=== PATIENT | female | born 1950 | race Caucasian/White ===

== ENCOUNTER → 2021-02-23 | Outpatient (CLI) | payer MEDICARE, BC | LOC: DX 11:16 | PROVIDERS: ATTEND Family Medicine | DX: R13.10 Dysphagia, unspecified (principal); Z20.822 Contact with and (suspected) exposure to COVID-19 | CPT/HCPCS: 74230; 92526; 92611; U0002 ==

== ENCOUNTER 2021-04-21 09:46 | Inpatient (IN) | payer MEDICARE, BC ==
[~2021-04-21] VITALS: Ht 167.6 cm; Wt 117.9 kg
[2021-04-21] MEDS ORDERED: ONDANSETRON HCL INJ 2MG/ML 2ML 2 MG/ML VIAL IV STA (10:28)
[2021-04-21] MEDS ORDERED: ONDANSETRON HCL INJ 2MG/ML 2ML 2 MG/ML VIAL ONE (10:35)
[2021-04-21 10:45] LABS: BASOPHILS % 0.2 % (0.0-1.0); EOSINOPHILS # (AUTO) 0.1 (0.0-0.4); EOSINOPHILS % 1.2 % (0.0-6.0); HEMATOCRIT 38.9 % (34.2-44.1); HEMOGLOBIN 12.8 g/dL (12.0-16.0); LYMPHOCYTES # (AUTO) 1.7 (1.0-3.2); LYMPHOCYTES % 14.8 % (18.0-39.1); MEAN CORPUSCULAR HEMOGLOBIN 30.3 pg (28-32); MEAN CORPUSCULAR HGB CONC 32.9 g/dL (31-35); MONOCYTES # (AUTO) 1.3 (0.2-0.8); MONOCYTES % 11.2 % (4.4-11.3); NEUTROPHILS # (AUTO) 8.2 (2.1-6.9); NEUTROPHILS % 71.9 % (38.7-80.0); PLATELET COUNT 279 x10e3/uL (140-360); RED BLOOD COUNT 4.23 x10e6/uL (3.6-5.1); RED CELL DISTRIBUTION WIDTH 13.5 % (11.7-14.4)
[2021-04-21] MEDS ORDERED: SODIUM CHLORIDE 0.9% 1000ML 1,000 ML IV SCH (10:45)
[2021-04-21] MEDS ORDERED: ONDANSETRON HCL INJ 2MG/ML 2ML 2 MG/ML VIAL IV PRN (10:45)
[2021-04-21] MEDS ORDERED: DEXTROSE 50% SYRINGE 50 ML IV PRN (10:45)
[2021-04-21] MEDS ORDERED: SODIUM CHLORIDE 0.9% 500ML 500 ML IV ONE (10:45)
[2021-04-21 11:16] LABS: ALBUMIN 3.5 g/dL (3.5-5.0); ANION GAP 25.9 mmol/L (8-16); CALCIUM 9.8 mg/dL (8.4-10.2); CREATININE, SERUM 7.14 mg/dL (0.57-1.11); POTASSIUM 4.9 mmol/L (3.5-5.1)
[2021-04-21 11:20] LABS: MAGNESIUM 1.1 MG/DL (1.3-2.1)
[2021-04-21] MEDS: INSULIN LISPRO 100 UNIT/1 ML 3ML VIAL SQ SCH ×3 (11:30→20:17)
[2021-04-21] MEDS ORDERED: MAGNESIUM SULFATE 2GM/50ML 50 ML IV ONE ×2 (12:30→16:45)
[2021-04-21] MEDS ORDERED: SODIUM BICARBONATE 8.4% SYRING 150 ML in DEXTROSE 5% 1,000 ML IV SCH ×2 (13:00→17:30)
[2021-04-21] MEDS ORDERED: LIDOCAINE HCL 1% LOCAL INJ 20 ML VIAL ONE (13:56)
[2021-04-21] MEDS ORDERED: HEPARIN SOD (PORCINE) 1000 UNIT/ML SDV ONE (14:31)
[2021-04-21 14:38] VITALS: BP 133/79
[2021-04-21 14:51] VITALS: BP 133/79
[2021-04-21 15:00] VITALS: BP 133/79
[2021-04-21 15:26] VITALS: BP 104/57
[2021-04-21 17:22] LABS: CREATINE KINASE MB 1.1 ng/mL (0-5.0)
[2021-04-21] MEDS ORDERED: PIPERACILLIN/TAZOBACTAM 2.25 GM in SODIUM CHLORIDE 0.9% 50ML 50 ML IV ONE (18:15)
[2021-04-21 20:23] VITALS: BP 98/48
[2021-04-21] MEDS ORDERED: Vancomycin IV 500 MG in SODIUM CHLORIDE 0.9% 100 ML IV ONE (21:45)
[2021-04-21] MEDS ORDERED: SODIUM CHLORIDE 0.9% 1000ML 500 ML IV SCH (21:45)
[2021-04-21] MEDS: PIPERACILLIN/TAZOBACTAM 2.25 GM in SODIUM CHLORIDE 0.9% 50ML 50 ML IV SCH (22:00)
[2021-04-21] MEDS ORDERED: Vancomycin IV 1 GM VIAL ONE (22:26)
[2021-04-21] MEDS ORDERED: SODIUM CHLORIDE 0.9% 250ML 250 ML ONE (22:27)
[2021-04-21 22:38] VITALS: BP 98/48
[2021-04-22] VITALS (8 sets, daily range): BP systolic 86–114; BP diastolic 40–60
[2021-04-22] MEDS: PIPERACILLIN/TAZOBACTAM 2.25 GM in SODIUM CHLORIDE 0.9% 50ML 50 ML IV SCH (05:18)
[2021-04-22 05:48] LABS: BASOPHILS % 0.5 % (0.0-1.0); EOSINOPHILS # (AUTO) 0.1 (0.0-0.4); EOSINOPHILS % 1.1 % (0.0-6.0); HEMATOCRIT 33.2 % (34.2-44.1); HEMOGLOBIN 11.1 g/dL (12.0-16.0); LYMPHOCYTES # (AUTO) 1.5 (1.0-3.2); LYMPHOCYTES % 24.4 % (18.0-39.1); MEAN CORPUSCULAR HEMOGLOBIN 30.2 pg (28-32); MEAN CORPUSCULAR HGB CONC 33.4 g/dL (31-35); MEAN CORPUSCULAR VOLUME 90.2 fL (81-99); MONOCYTES # (AUTO) 0.8 (0.2-0.8); MONOCYTES % 13.7 % (4.4-11.3); NEUTROPHILS # (AUTO) 3.7 (2.1-6.9); PLATELET COUNT 216 x10e3/uL (140-360); RED BLOOD COUNT 3.68 x10e6/uL (3.6-5.1); RED CELL DISTRIBUTION WIDTH 13.5 % (11.7-14.4)
[2021-04-22] MEDS: ACETAMINOPHEN 325 MG TAB PO PRN (06:24)
[2021-04-22] MEDS ORDERED: SODIUM CHLORIDE 0.9% 1000ML 2,000 ML IV PRN (06:45)
[2021-04-22] MEDS ORDERED: SODIUM CHLORIDE 0.9% 250ML 750 ML IV PRN (06:45)
[2021-04-22] MEDS ORDERED: HEPARIN SOD (PORCINE) 1000 UNIT/ML SDV IV PRN ×2 (06:45→10:45)
[2021-04-22 06:53] LABS: ALBUMIN 2.9 g/dL (3.5-5.0); ALBUMIN/GLOBULIN RATIO 1.1 (0.8-2.0); ANION GAP 19.8 mmol/L (8-16); CALCIUM 8.3 mg/dL (8.4-10.2); CREATININE, SERUM 4.39 mg/dL (0.57-1.11); POTASSIUM 3.8 mmol/L (3.5-5.1)
[2021-04-22] MEDS: INSULIN LISPRO 100 UNIT/1 ML 3ML VIAL SQ SCH ×4 (07:30→20:48)
[2021-04-22 07:32] LABS: CREATINE KINASE MB 0.7 ng/mL (0-5.0)
[2021-04-22] MEDS ORDERED: SODIUM CHLORIDE 0.9% 1000ML 1,000 ML IV ONE (09:15)
[2021-04-22] MEDS ORDERED: MAGNESIUM SULF 1GRAM/DEXTROSE 100 ML IV ONE (10:15)
[2021-04-22 10:24] LABS: CLARITY,URINE CLOUDY (CLEAR); COLOR,URINE YELLOW (YELLOW); KETONES,URINE NEGATIVE (NEGATIVE); LEUKOCYTE ESTERASE ,URINE NEGATIVE (NEGATIVE); NITRITE,URINE NEGATIVE (NEGATIVE); PROTEIN,URINE DIPSTICK 1+ (NEGATIVE); URINE UROBILINOGEN 0.2 mg/dL (0.2 - 1)
[2021-04-22] MEDS ORDERED: ALBUMIN 25% 12.5GM 0.25 GM/ML BTL IV PRN (10:45)
[2021-04-22] MEDS ORDERED: SODIUM CHLORIDE 0.9% 250ML 500 ML IV PRN (10:45)
[2021-04-22 10:49] LABS: BACTERIA,URINE MODERATE /HPF; EPITHELIAL CELLS,URINE MODERATE /LPF; WBC,URINE (MAN) 21-50 /HPF (0-5)
[2021-04-22] MEDS ORDERED: ONDANSETRON HCL 4 MG ORAL DISINTEGRATING TAB PO PRN (14:30)
[2021-04-22] MEDS: CEFTRIAXONE 1 GM in SODIUM CHLORIDE 0.9% 50ML 50 ML IV SCH (15:00)
[2021-04-22] MEDS: MELATONIN 5 MG TABLET PO SCH (21:19)
[2021-04-23] VITALS (9 sets, daily range): BP systolic 99–158; BP diastolic 59–85
[2021-04-23 05:54] LABS: BASOPHILS % 0.5 % (0.0-1.0); EOSINOPHILS # (AUTO) 0.1 (0.0-0.4); EOSINOPHILS % 2.2 % (0.0-6.0); HEMATOCRIT 33.6 % (34.2-44.1); HEMOGLOBIN 10.8 g/dL (12.0-16.0); LYMPHOCYTES # (AUTO) 1.3 (1.0-3.2); LYMPHOCYTES % 19.9 % (18.0-39.1); MEAN CORPUSCULAR HEMOGLOBIN 29.7 pg (28-32); MEAN CORPUSCULAR HGB CONC 32.1 g/dL (31-35); MEAN CORPUSCULAR VOLUME 92.3 fL (81-99); MONOCYTES # (AUTO) 0.9 (0.2-0.8); MONOCYTES % 14.4 % (4.4-11.3); NEUTROPHILS # (AUTO) 3.9 (2.1-6.9); NEUTROPHILS % 62.7 % (38.7-80.0); PLATELET COUNT 195 x10e3/uL (140-360); RED BLOOD COUNT 3.64 x10e6/uL (3.6-5.1); RED CELL DISTRIBUTION WIDTH 13.6 % (11.7-14.4)
[2021-04-23 06:36] LABS: ALBUMIN/GLOBULIN RATIO 1.2 (0.8-2.0); ANION GAP 15.9 mmol/L (8-16); CALCIUM 8.1 mg/dL (8.4-10.2); CREATININE, SERUM 3.18 mg/dL (0.57-1.11); POTASSIUM 3.9 mmol/L (3.5-5.1)
[2021-04-23] MEDS: INSULIN LISPRO 100 UNIT/1 ML 3ML VIAL SQ SCH ×4 (07:30→20:51)
[2021-04-23] MEDS ORDERED: CEFTRIAXONE 1 GM in SODIUM CHLORIDE 0.9% 50ML 50 ML IV SCH (09:00)
[2021-04-23] MEDS: CEFTRIAXONE 1 GM in SODIUM CHLORIDE 0.9% 50ML 50 ML IV SCH (15:00)
[2021-04-23] MEDS: MELATONIN 5 MG TABLET PO SCH (20:51)
[2021-04-24] VITALS (7 sets, daily range): BP systolic 112–149; BP diastolic 70–82
[2021-04-24] MEDS: INSULIN LISPRO 100 UNIT/1 ML 3ML VIAL SQ SCH ×4 (07:30→21:30)
[2021-04-24] MEDS: CEFTRIAXONE 1 GM in SODIUM CHLORIDE 0.9% 50ML 50 ML IV SCH (15:00)
[2021-04-24] MEDS: MELATONIN 5 MG TABLET PO SCH (22:02)
[2021-04-25] VITALS (7 sets, daily range): BP systolic 125–145; BP diastolic 73–100
[2021-04-25 06:47] LABS: ANION GAP 15.6 mmol/L (8-16); CALCIUM 8.9 mg/dL (8.4-10.2); CREATININE, SERUM 2.58 mg/dL (0.57-1.11); POTASSIUM 3.6 mmol/L (3.5-5.1)
[2021-04-25] MEDS: INSULIN LISPRO 100 UNIT/1 ML 3ML VIAL SQ SCH ×4 (07:30→20:49)
[2021-04-25] MEDS: ACETAMINOPHEN 325 MG TAB PO PRN (07:50)
[2021-04-25] MEDS ORDERED: METFORMIN HCL500 MG PO (12:39)
[2021-04-25] MEDS ORDERED: LISINOPRIL10 MG PO (12:39)
[2021-04-25] MEDS ORDERED: GABAPENTIN400 MG PO (12:39)
[2021-04-25] MEDS ORDERED: ATORVASTATIN CA10 MG PO (12:39)
[2021-04-25] MEDS ORDERED: SYNTHROID125 MCG PO (12:39)
[2021-04-25] MEDS ORDERED: HYDROCHLOROTHIA25 MG PO (12:39)
[2021-04-25] MEDS ORDERED: OXYBUTYNIN CHLOR5 M1 PO (12:39)
[2021-04-25] MEDS: CEFTRIAXONE 1 GM in SODIUM CHLORIDE 0.9% 50ML 50 ML IV SCH (15:00)
[2021-04-25] MEDS: MELATONIN 5 MG TABLET PO SCH (20:49)
[2021-04-26] VITALS: BP 105/60
[2021-04-26] MEDS: ACETAMINOPHEN 325 MG TAB PO PRN ×2 (01:14→08:16)
[2021-04-26 04:00] VITALS: BP 116/65
[2021-04-26 05:25] LABS: ALBUMIN/GLOBULIN RATIO 1.1 (0.8-2.0); CREATININE, SERUM 2.53 mg/dL (0.57-1.11)
[2021-04-26] MEDS: INSULIN LISPRO 100 UNIT/1 ML 3ML VIAL SQ SCH ×2 (07:30→12:59)
[2021-04-26 08:00] VITALS: BP 126/86
[2021-04-26 10:02] VITALS: BP 126/86
[2021-04-26 12:00] VITALS: BP 127/88
== END 2021-04-26 13:22 | disposition home or self-care (01) | DRG 871 ==
LOC: ER 10:08 → ERHOLD 12:32 → MED/SURG2 13:37
PROVIDERS: ADMIT Family Medicine; ATTEND Family Medicine
PROC: 02HV33Z Insertion of Infusion Device into Superior Vena Cava, Percutaneous Approach (ICD-10-PCS; principal; 2021-04-21)
PROC: 5A1D70Z Performance of Urinary Filtration, Intermittent, Less than 6 Hours Per Day (ICD-10-PCS; 2021-04-21)
DX: A41.9 Sepsis, unspecified organism (principal); N17.0 Acute kidney failure with tubular necrosis; J18.9 Pneumonia, unspecified organism; N39.0 Urinary tract infection, site not specified; E87.2 Acidosis; Z68.41 Body mass index [BMI] 40.0-44.9, adult; Z86.16 Personal history of COVID-19; E83.42 Hypomagnesemia; E86.0 Dehydration; E11.22 Type 2 diabetes mellitus with diabetic chronic kidney disease; I12.9 Hypertensive chronic kidney disease with stage 1 through stage 4 chronic kidney disease, or unspecified chronic kidney disease; N18.32 Chronic kidney disease, stage 3b; E66.01 Morbid (severe) obesity due to excess calories
CPT/HCPCS: 36415; 36556; 71045; 74470; 76770; 76937; 77001; 80048; 80053; 81001; 82550; 82553; 82948; 83605; 83735; 83880; 84100; 84484; 84550; 85025; 86705; 86706; 87040; 87086; 87340; 90962; 93005; 99251; 99284; C1752; C1769; J0696; J1644; J2001; J2405; J2543; J3370; J3475; J7030; J7040; J7050; J7070; Q0162; U0002